=== PATIENT | male | born 1945 | race Caucasian/White ===

== ENCOUNTER 2018-01-01 11:08 | Emergency (ER) | payer OTHER ==
[~2018-01-01] VITALS: Ht 172.7 cm; Wt 93.0 kg
[2018-01-01 11:09] VITALS: BP 156/85; PULSE 60; RESP 20; TEMP 98.2; O2SAT 99
[2018-01-01] MEDS ORDERED: MORPHINE SULFATE 4 MG/ML INJ IM ONE (11:15)
[2018-01-01] MEDS ORDERED: ONDANSETRON ODT 4 MG TAB PO ONE (11:15)
[2018-01-01] MEDS ORDERED: KETOROLAC TROMETHAMINE 60 MG/2 ML (IM) VIAL IM ONE (11:15)
[2018-01-01] MEDS ORDERED: ASPI-516 CHEW (11:20)
[2018-01-01] MEDS ORDERED: ATOR10TA15 PO (11:20)
[2018-01-01] MEDS ORDERED: METF1000 PO (11:20)
--- NOTE | 2018-01-01 11:25 | PD ---
HPI Chief Complaint: Musculoskeletal Complaint Time Seen by Provider: 11:13 Travel History International Travel<30 days: No Contact w/Intl Traveler<30days: No Traveled to known affect area: No History of Present Illness HPI 72-year-old male that presents to the ED for evaluation of left hip pain. Patient has had left hip pain for the past 2 weeks. Per patient is progressively getting worse. Patient denies any injury. Per patient she's been able to deal with her with some anti-inflammatories [id number] as well as eyes but the pain has become progressively more significant. Per patient pain is 7 out of 10 and is constant. Gets worse with any movement. 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 No surgeries. Denies any urinary or bowel movement issues. Per patient radiates down. Has not seen anybody for this. Denies any recent travel. Nothing seems to make it better other than not moving. PFSH Past Medical History ?: Not Social History Tobacco Use: No Allergies-Medications (Allergen,Severity, Reaction): Coded Allergies: No Known Allergies (Verified Allergy, Unknown, 01/01/18) Reported Meds & Prescriptions Reported Meds & Active Scripts Active Tramadol (Tramadol HCl) 50 Mg Tab 50 Mg PO Q6H PRN Robaxin (Methocarbamol) 500 Mg Tab 500 Mg PO QID Naproxen 500 Mg Tab 500 Mg PO BID PRN Reported Aspirin 81 Mg Chew 81 Mg CHEW DAILY Metformin (Metformin HCl) 1,000 Mg Tab 1,000 Mg PO DAILY With a meal Atorvastatin (Atorvastatin Calcium) 10 Mg Tab 10 Mg PO HS Review of Systems Except as stated in HPI: all other systems reviewed are Neg Physical Exam Narrative GENERAL: SKIN: Warm and dry. HEAD: Atraumatic. Normocephalic. EYES: Pupils equal and round. No scleral icterus. No injection or drainage. ENT: No nasal bleeding or discharge. Mucous membranes pink and moist. NECK: Trachea midline. No JVD. CARDIOVASCULAR: Regular rate and rhythm. RESPIRATORY: No accessory muscle use. Clear to auscultation. Breath sounds equal bilaterally. GASTROINTESTINAL: Abdomen soft, non-tender, nondistended. Hepatic and splenic margins not palpable. MUSCULOSKELETAL: Extremities without clubbing, cyanosis, or edema. No obvious deformities. Patient has reproducible pain with touch on the left hip as well as with in-line range of motion. No obvious deformity noted. No lumbar, thoracic, cervical spine tenderness to palpation. Pain worsens with internal or external rotation. Also with weightbearing. 2+ pulses bilaterally in the feet. No other deformity noted. NEUROLOGICAL: Awake and alert. No obvious cranial nerve deficits. Motor grossly within normal limits. Five out of 5 muscle strength in the arms and legs. Normal speech. PSYCHIATRIC: Appropriate mood and affect; insight and judgment normal. Data Data Last Documented VS Vital Signs Date Time Temp Pulse Resp B/P (MAP) Pulse Ox O2 Delivery O2 Flow Rate FiO2 01/01/18 11:09 98.2 60 20 156/85 (108) 99 Orders Orders Hip, Uni(Ap&Lat) W Ap Pelvis (01/01/18 11:15) Ice/Cold Pack (01/01/18 11:15) Ketorolac Inj (Toradol Inj) (01/01/18 11:15) Morphine Inj (Morphine Inj) (01/01/18 11:15) Ondansetron Odt (Zofran Odt) (01/01/18 11:15) Ed Discharge Order (01/01/18 12:12) [facility] Medical Decision Making Medical Screen Exam Complete: Yes Emergency Medical Condition: Yes Medical Record Reviewed: Yes Interpretation(s) xray of the left hip negative Differential Diagnosis arthritis versus fracture versus sciatica versus bursitis Narrative Course 72-year-old male to presents to the ED for evaluation of left hip pain with no injury. Patient was properly examined and was found to have signs and symptoms consistent appears to muscle skeletal pain. Patient has pinpoint tenderness to palpation on the hip and pain with range of motion of the hip. X-ray was ordered. Patient was given pain medications. X-ray showed no sign of acute bony injury. Patient was reassured. This time this appears to be likely sciatica. We'll treat with anti-inflammatories as well as muscle relaxant and pain medication. Patient was told to apply ice or warm compresses. Follow with PCP this week. Rest. No heavy lifting. See ED worsening symptoms. Diagnosis Primary Impression: Sciatica of left side Patient Instructions: General Instructions Additional Instructions: Take medications as prescribed. Follow-up with PCP. See ED for any worsening symptoms. Do not drink or drive while taking pain medication. Apply ice or heat as needed for pain Med/Other Pt SpecificInfo: Prescription(s) given Scripts Tramadol (Tramadol) 50 Mg Tab 50 MG PO Q6H Y for PAIN, #14 TAB 0 Refills Prov: Adilson Pleitez MD 01/01/18 Methocarbamol (Robaxin) 500 Mg Tab 500 MG PO QID for Muscle Spasm, #15 TAB 0 Refills Prov: Adilson Pleitez MD 01/01/18 Naproxen (Naproxen) 500 Mg Tab 500 MG PO BID Y for PAIN SCALE 1 TO 10, #60 TAB 0 Refills Prov: Adilson Pleitez MD 01/01/18 Disposition: 01 DISCHARGE HOME Condition: Chad Garay Jan 01, 2018 11:25
--- NOTE | 2018-01-01 12:01 | RADRPT ---
EXAM DATE/TIME: 01/01/2018 11:40 [place] COMPARISON: No previous studies available for comparison. INDICATIONS : Left hip pain, no known injury MEDICAL HISTORY : Diabetes mellitus type II. SURGICAL HISTORY : None. ENCOUNTER: Initial ACUITY: 2 weeks PAIN SCORE: 7/10 LOCATION: Left hip FINDINGS: Examination of the left hip was performed with AP Pelvis. The primary and secondary trabecular patte rn of the femoral neck is intact. The hip joint is of normal width without significant sclerosis or bony hypertrophy. The acetabulum is grossly intact. CONCLUSION: Intact without evidence of acute process or significant arthropathy. Jarad Graves MD on January 01, 2018 at 11:57 Board Certified Radiologist. This report was verified electronically.
[2018-01-01] MEDS ORDERED: TRAM50TA PO (12:12)
[2018-01-01] MEDS ORDERED: NAPR500T2 PO (12:12)
[2018-01-01] MEDS ORDERED: ROBA500T PO (12:12)
== END 2018-01-01 12:21 | disposition home or self-care (01) ==
LOC: PHEFT 11:08
DX: M54.32 Sciatica, left side (principal)
CPT/HCPCS: 73502; 96372; 99283; J1885; J2270